=== PATIENT | male | born 1985 | race Caucasian/White ===

== ENCOUNTER 2020-09-04 19:57 | Emergency (ER) | payer MEDICAID, SELFPAY ==
[2020-09-04 19:58] VITALS: BP 125/89; PULSE 106; RESP 20; TEMP 36.6; O2SAT 97; BMI 24.2
--- NOTE | 2020-09-04 21:33 | ED.VISSUMM ---
- ER Visit Summary Date of Service: 09/04/20 Chief Complaint: I got my splint wet History of Present Illness: The patient is a 34 M who reports that he had right ankle surgery [address] Conley at [place]. States that tonight he took a shower and water got in and his splint is soaked. Reports that he has an appointment with a surgeon in 2 days. Review of systems: General: No fever, chills, cold sweats. Cardiovascular: No chest pain, palpitations. Respiratory: No cough, shortness of breath, dyspnea on exertion. Gastrointestinal: No abdominal pain, nausea, vomiting, diarrhea, melena, or hematochezia. Genitourinary: No dysuria, frequency, hematuria. Skin: No rash. Neuro: No headache, numbness, weakness. Physical Examination: Vitals: Stable. Afebrile. General: Well-nourished and well-developed. Head: Normocephalic atraumatic. Neck: Supple, no lymphadenopathy. No JVD. Nontender. Cardiovascular: Regular rate and rhythm. No murmurs. Respiratory: No respiratory distress. Clear to auscultation bilaterally. Abdominal: Soft, nontender, nondistended, normal bowel sounds. No guarding, rebound, or peritoneal signs. Back: Nontender. Extremities: Short leg posterior splint on the right. When this is removed there are 2 incisions on the medial and lateral surface of his ankle that are clean, dry, and intact. No evidence of infection.. Skin: Normal color, no rash. Neurologic: Alert and oriented ?3. Cranial nerves II through XII are intact. Normal strength and sensation. Psych: Normal affect. Emergency Department Course and Treatment: Patient had his splint removed. He was given a period of time to let the skin and air out. He then had a new splint placed. He tolerated this well. Treatment Plan: Patient be discharged instructions follow-up with orthopedic surgeon as previously scheduled. Return to the emergency department for any worsening symptoms. Disposition: To home in improved and stable condition. Impression: 1. Ortho-Glass short leg splint, fabricated. This note was generated with [employer] dictation software. It may contain incorrect words, spelling, and punctuation that were not noted in review of the chart prior to signing ED Disposition - Plan for ED Patient: Instructions: ED Splint Care, [employer]erg[employer] Additional Instructions: Follow-up with your orthopedic surgeon as previously scheduled.
[2020-09-04 21:44] VITALS: BP 128/89; PULSE 78; RESP 12; O2SAT 98
== END 2020-09-04 21:45 | disposition home or self-care (01) ==
LOC: ED 20:49
PROVIDERS: Emergency Provider Emergency Medicine; PCP Family Medicine
DX: Z46.89 Encounter for fitting and adjustment of other specified devices (principal)
CPT/HCPCS: 29515; 99282